=== PATIENT | female | born 1970 | race Caucasian/White ===

== ENCOUNTER 2017-02-17 21:23 | Emergency (ER) | payer OTHER ==
[~2017-02-17] VITALS: Ht 160 cm; Wt 57.7 kg
[2017-02-17 21:28] VITALS: BP 142/79; TEMP 36.9; Ht 160 cm; Wt 57.7 kg
[2017-02-17] MEDS ORDERED: OXYCODONE HCL IR 5 MG TAB (IMMEDIATE RELEASE) PO STA (21:46)
[2017-02-17] MEDS ORDERED: VENL150C PO (21:47)
[2017-02-17] MEDS ORDERED: IBUP-1050 PO (21:47)
[2017-02-17] MEDS ORDERED: GABA1CAP5 PO (21:47)
--- NOTE | 2017-02-17 22:23 | DIAGNOSTIC IMAGING REPORT ---
RIGHT HAND 3 VIEWS HISTORY: Fall. R hand pain Right COMPARISON: None. FINDINGS: There is no fracture or dislocation. Soft tissues are unremarkable. No radiopaque foreign bodies. IMPRESSION: No fractures. Electronically signed by: Gal Evans M.D. 02/17/2017 10:21 PM Dictated Date/Time: 02/17/2017 10:19 PM
--- NOTE | 2017-02-17 22:25 | DIAGNOSTIC IMAGING REPORT ---
LEFT RIBS UNILATERAL WITH PA CHEST CLINICAL HISTORY: Fall with left rib pain. COMPARISON STUDY: Chest 07/31/2016. FINDINGS: Mild diffuse interstitial thickening which is likely chronic. This remains unchanged. The heart is normal in size. No pleural effusions. No pneumothorax. No acute rib fractures. IMPRESSION: No acute rib fractures. No pneumothorax. Electronically signed by: Gal Evans M.D. 02/17/2017 10:24 PM Dictated Date/Time: 02/17/2017 10:21 PM
--- NOTE | 2017-02-17 22:27 | DIAGNOSTIC IMAGING REPORT ---
PELVIS 1 OR 2 VIEW ROUTINE CLINICAL HISTORY: L posterior iliac crest and SIJ pain. Fall. COMPARISON STUDY: None. FINDINGS: No fracture or dislocation within the pelvis or hips. The sacrum appears intact. Soft tissues are unremarkable. IMPRESSION: No fracture or dislocation within the pelvis or hips. Electronically signed by: Gal Evans M.D. 02/17/2017 10:25 PM Dictated Date/Time: 02/17/2017 10:24 PM
[2017-02-17 22:57] VITALS: PULSE 84; O2SAT 96
--- NOTE | 2017-02-18 02:38 | EMERGENCY ROOM VISIT NOTE ---
ED Visit Note First contact with patient: 21:37 Chief Complaint: Fall. History of Present Illness: Ms. rosalino child is a 46-year-old white female who ambulates into the ED complaining of a fall last evening and development of left sided rib pain, pain over the left side of the posterior iliac crest and in the left sacroiliac joint area. Currently she reports her most severe pain is in her left lateral ribs. She places her discomfort in the area of ribs 9 through 11. She rates her discomfort 4/10. Her pain is nonradiating. Her pain worsens with inspiration and palpation. She has not identified any alleviating factors related to the pain. She reports she has not taken any medication for pain prior to arrival at the hospital. Additionally she complains of pain over the posterior aspect of the iliac crest on the left and in the left sacroiliac joint area. She describes these as an achy sensation. She does not rate her discomfort. Her pain worsens with palpation. She has not identified any alleviating factors related to the pain. She has not taken any medications for pain prior to arrival at the hospital. Lastly she is complaining of pain over the posterior aspect of the sacroiliac joint and iliac crest joint area. She describes her pain as an dullness/achy sensation. She does not rate this discomfort. Her pain worsens with palpation. She has not taken any medications for pain prior to arrival at the hospital. Lastly she reports she is having right hand pain. She is not necessarily sure of this pain occurred when she fell. She thinks it may be related to carpal tunnel syndrome. She describes her hand as an achy sensation throughout the entire hand. She has not identified any aggravating or alleviating factors related to this pain. She has not taken any medications for this pain prior to arrival at the hospital. She denies any associated numbness/tingling. Additionally she denies lightheaded dizziness before the fall, loss of consciousness at the time of the fall, any abnormal neurological symptoms since the fall, cervical and thoracic back pain, chest pain, shortness of breath, abdominal pain, nausea, vomiting, bloody stools, bloody urine. Review of Systems: As noted above in history of present illness. 8 body systems were reviewed and found to be negative as noted above. Past Medical History: Unspecified stomach disorder, status post tonsillectomy. Current Medications: Neurontin, Effexor, Aleve. Allergies to Medications: Aspirin. Social History: Patient is currently employed; she lives with her boyfriend feels safe in her home environment; she admits to tobacco use and denies alcohol use. Physical Examination: Vital Signs: Medications Dose Route/Sig Max Daily Dose Days Date Category Advil (Ibuprofen) 200 Mg Tab 200-600 Mg PO UD PRN 02/17/17 Reported Effexor Xr (Venlafaxine Hcl) 150 Mg Cap 150 Mg PO DAILY 30 02/17/17 Reported Neurontin (Gabapentin) 400 Mg Cap 400 Mg PO TID 02/17/17 Reported GENERAL: 46-year-old female in mild to moderate distress due to pain, nontoxic- appearing, afebrile and hemodynamically stable. NEUROLOGICAL: Awake, alert and oriented to person, place and time. Answering questions appropriately and following commands. Normal gait. Good hand eye coordination. No focal motor or sensory deficits. SKIN: Warm, dry and pink. No soft tissue trauma noted. HEENT: Atraumatic and normocephalic. BACK: No tenderness over the bony spine. No CVA tenderness. THORAX: Lungs sounds are clear to auscultation and equal bilaterally with symmetrical chest wall. No wheezing, rales or rhonchi. Left lateral chest wall pain in the areas of ribs 8 through 11 without bony deformity, swelling, bony crepitus, tenderness, subcutaneous air or deformities noted. HEART: Regular rate and rhythm. No gallops, rubs or murmurs are appreciated. ABDOMEN: Flat, soft and nontender. Positive bowel sounds in all quadrants. No guarding, rigidity or organomegaly. PELVIS: Mild tenderness over the left sacroiliac joint area without bony deformities or crepitus. There is no local swelling or ecchymosis. There is also mild tenderness over the posterior aspect of the iliac crests. There is no bony deformity or crepitus. I do not appreciate any swelling or ecchymosis in this area. EXTREMITIES: Moves all extremities well on command and with purpose. All distal neurovascular statuses are intact and equal bilaterally. ED Course: Patient is assessed as noted above. Patient was given 5 mg of OxyIR by mouth for pain. PA Chest with Left Rib X-Rays: Were read by myself and the radiologist showing no acute infiltrates, effusions or pneumothorax. Normal heart silhouette and bony anatomy. No signs of rib fractures. Pelvis X-Rays: Were read by myself and the radiologist showing no acute fractures or dislocations Right Hand X-Rays: Were read by myself and the radiologist showing no acute fractures or dislocations. Patient was educated about tonight's findings and instructed on her treatment plan; she verbalizes understanding and agreement with this plan. Clinical Impression: Fall. Left sided rib pain. Left sided iliac crest/ sacroiliac joint pain. Right hand pain. Disposition: Patient discharged home in stable condition accompanied by her boyfriend; prior to departure she was reassessed and subjectively reported she was feeling the same. Plan: Comfort measures were discussed with the patient including alternating ibuprofen and acetaminophen every 3 hours, ice over areas of pain. Patient was encouraged to avoid tobacco use until resolution of rib pain. Patient was encouraged to do deep breathing exercises. Patient was encouraged to follow-up with her PCP for recheck in 3-5 days. Patient was encouraged return the ED for uncontrolled pain, fevers, coughing up blood, shortness of breath or any new/concerning symptoms.
== END 2017-02-17 22:58 | disposition home or self-care (01) ==
LOC: C.EDB 21:24 → C.EDD 22:58
DX: R07.81 Pleurodynia (principal); W19.XXXA Unspecified fall, initial encounter; M53.3 Sacrococcygeal disorders, not elsewhere classified; M79.641 Pain in right hand; F17.200 Nicotine dependence, unspecified, uncomplicated